=== PATIENT | male | born 1990 | race Two or more races ===

== ENCOUNTER 2022-02-12 09:12 | Emergency (ER) | payer SELFPAY ==
[2022-02-12 09:19] VITALS: BP 123/82; PULSE 72; RESP 18; TEMP 98.1; BMI 29.7
[2022-02-12] MEDS ORDERED: DIPHTH,PERTUSS(ACELL),TET 0.5 ML DISP.SYRIN IM ONE ×2 (09:59→10:04)
[2022-02-12] MEDS ORDERED: KETOROLAC TROMETHAMINE 30 MG/1 ML VIAL IM ONE (09:59)
[2022-02-12] MEDS ORDERED: KETOROLAC TROMETHAMINE 30 MG/1 ML VIAL ONE (10:06)
== END 2022-02-12 10:39 | disposition home or self-care (01) ==
LOC: JERFT 09:12 → JER 09:12 → JERFT 10:39
DX: Z48.00 Encounter for change or removal of nonsurgical wound dressing (principal)
CPT/HCPCS: 90715; 99281-25

== ENCOUNTER 2022-02-17 18:28 | Inpatient (IN) | payer OTHER ==
[2022-02-17] MEDS ORDERED: PIPERACILLIN/TAZOB 3.375 GM 3.375 GM in DEXTROSE 5%-WATER - 50 ML IVPB ONE (21:14)
[2022-02-17] MEDS ORDERED: VANCOMYCIN 1 GM in D5W (PRE-DOCKED) 1,000 MG/250 ML IVPB ONE (21:14)
[2022-02-17] MEDS ORDERED: PIPERACILLIN/TAZOB 3.375 GM 3.375 GM/50 ML BAG IVPB ONE (21:43)
[2022-02-17 22:10] LABS: BASO % 0.8 % (0-2.0); HEMATOCRIT 43.5 % (35.4-49); HEMOGLOBIN 15.3 GM/dL (11.7-16.9); LYMPH % 36.7 % (8-40); MCH 29.3 pg (25.7-33.7); MCHC 35.2 g/dl (32.0-35.9); MEAN PLT VOLUME 7.5 fl (7.5-11.1); NEUT % 50.5 % (42.8-82.8); PLATELET COUNT 256 10^3/uL (134-434); RBC 5.24 M/mm3 (4.00-5.60); RDW 14.5 % (11.9-15.9); WHITE BLOOD COUNT 7.7 K/mm3 (4.0-10.0)
[2022-02-17 22:23] LABS: BLOOD UREA NITROGEN 22.6 mg/dL (7-18); CALCIUM 9.2 mg/dL (8.5-10.1)
[2022-02-17] MEDS ORDERED: VANCOMYCIN/WATER FOR INJ (PEG) 1,000 MG/200 ML BAG IVPB ONE (22:25)
[2022-02-17 22:26] LABS: CREATININE 1.1 mg/dL (0.55-1.3)
[2022-02-17 22:28] LABS: BILIRUBIN,TOTAL 0.3 mg/dL (0.2-1); TOT PROT 7.6 g/dl (6.4-8.2)
[2022-02-17 22:58] LABS: ERYTHROCYTE SEDIMENTATION RATE 8 mm/hr (0-10)
[2022-02-18] MEDS ORDERED: PIPERACILLIN/TAZOB 3.375 GM 3.375 GM/50 ML BAG IVPB ONE ×4 (05:00→18:38)
[2022-02-18] MEDS: PIPERACILLIN/TAZOB 3.375 GM 3.375 GM in DEXTROSE 5%-WATER - 50 ML IVPB SCH ×4 (05:19→20:57)
[2022-02-18] MEDS ORDERED: PIPERACILLIN/TAZOB 3.375 GM 3.375 GM in DEXTROSE 5%-WATER - 50 ML IVPB ONE ×2 (06:00→12:00)
[2022-02-18 06:17] LABS: HEMATOCRIT 42.7 % (35.4-49); HEMOGLOBIN 14.5 GM/dL (11.7-16.9); MCH 27.9 pg (25.7-33.7); MCHC 33.9 g/dl (32.0-35.9); MEAN CELL VOLUME 82.3 fl (80-96); MEAN PLT VOLUME 7.8 fl (7.5-11.1); PLATELET COUNT 242 10^3/uL (134-434); RBC 5.19 M/mm3 (4.00-5.60); RDW 14.7 % (11.9-15.9); WHITE BLOOD COUNT 6.3 K/mm3 (4.0-10.0)
[2022-02-18 06:37] LABS: CALCIUM 8.7 mg/dL (8.5-10.1)
[2022-02-18 06:38] LABS: ALBUMIN 3.7 g/dl (3.4-5.0); BLOOD UREA NITROGEN 19.7 mg/dL (7-18); MAGNESIUM 2.3 mg/dL (1.8-2.4)
[2022-02-18 06:41] LABS: CREATININE 0.9 mg/dL (0.55-1.3); PHOSPHOROUS 3.8 mg/dL (2.5-4.9)
[2022-02-18 06:43] LABS: BILIRUBIN,TOTAL 0.5 mg/dL (0.2-1)
[2022-02-18] MEDS ORDERED: ENOXAPARIN NA (PORCINE) 40 MG/0.4 ML DISP.SYRIN SQ ONE (07:32)
[2022-02-18] MEDS ORDERED: ACETAMINOPHEN INJECTION 100 ML IVPB ONE (09:46)
[2022-02-18] MEDS ORDERED: VANCOMYCIN/WATER 1250 MG 1,250 MG/250 ML BAG IVPB SCH (10:00)
[2022-02-18] MEDS: ACETAMINOPHEN 1000 MG/100 ML BAG IVPB PRN ×2 (10:47→20:11)
[2022-02-18] MEDS: VANCOMYCIN/WATER 1250 MG 1,250 MG/250 ML BAG IVPB SCH ×2 (11:30→22:15)
[2022-02-18] MEDS: ENOXAPARIN NA (PORCINE) 40 MG/0.4 ML DISP.SYRIN SQ SCH (11:30)
[2022-02-18] MEDS ORDERED: VANCOMYCIN 1 GM in D5W (PRE-DOCKED) 1,000 MG/250 ML IVPB ONE (21:00)
[2022-02-19 00:42] VITALS: BMI 30.6
[2022-02-19] MEDS: PIPERACILLIN/TAZOB 3.375 GM 3.375 GM in DEXTROSE 5%-WATER - 50 ML IVPB SCH ×4 (02:33→21:20)
[2022-02-19] MEDS: ENOXAPARIN NA (PORCINE) 40 MG/0.4 ML DISP.SYRIN SQ SCH (09:36)
[2022-02-19] MEDS: VANCOMYCIN/WATER 1250 MG 1,250 MG/250 ML BAG IVPB SCH ×2 (10:49→22:12)
[2022-02-20] MEDS: PIPERACILLIN/TAZOB 3.375 GM 3.375 GM in DEXTROSE 5%-WATER - 50 ML IVPB SCH ×4 (03:08→20:22)
[2022-02-20] MEDS: ENOXAPARIN NA (PORCINE) 40 MG/0.4 ML DISP.SYRIN SQ SCH (10:03)
[2022-02-20] MEDS: VANCOMYCIN/WATER 1250 MG 1,250 MG/250 ML BAG IVPB SCH (11:38)
[2022-02-20] MEDS ORDERED: ACETAMINOPHEN 325 MG TABLET (FP) PO PRN (22:24)
[2022-02-21] MEDS: PIPERACILLIN/TAZOB 3.375 GM 3.375 GM in DEXTROSE 5%-WATER - 50 ML IVPB SCH ×4 (03:03→22:47)
[2022-02-21] MEDS: ENOXAPARIN NA (PORCINE) 40 MG/0.4 ML DISP.SYRIN SQ SCH (10:07)
[2022-02-22] MEDS: PIPERACILLIN/TAZOB 3.375 GM 3.375 GM in DEXTROSE 5%-WATER - 50 ML IVPB SCH ×5 (03:02→20:18)
[2022-02-22] MEDS ORDERED: AMINO ACIDS/PROTEIN HYDROLYS 30 ML LIQUID.PKT PO SCH (08:00)
[2022-02-22] MEDS ORDERED: LIDOCAINE HCL 2% 100 MG/5 ML DISP.SYRIN ONE (08:25)
[2022-02-22] MEDS ORDERED: MIDAZOLAM HCL 2 MG/2 ML SINGLE DOSE VIAL ONE (08:26)
[2022-02-22] MEDS ORDERED: LIDOCAINE HCL 1%, 10 MG/ML (20ML VIAL) ONE (08:27)
[2022-02-22] MEDS ORDERED: GENTAMICIN SO4 80 MG/2 ML VIAL ONE (08:27)
[2022-02-22] MEDS ORDERED: LIDOCAINE HCL 1%, 10 MG/ML (20ML VIAL) NR ONE ×2 (08:35→08:42)
[2022-02-22] MEDS ORDERED: BUPIVACAINE HCL/PF 0.5% (5MG/ML) 10 ML VIAL IJ ONE ×2 (08:36→08:42)
[2022-02-22] MEDS ORDERED: ONDANSETRON 4 MG/2 ML VIAL IVPUSH PRN (09:08)
[2022-02-22] MEDS ORDERED: PROMETHAZINE HCL 25 MG/1 ML VIAL IVPUSH PRN (09:08)
[2022-02-22] MEDS ORDERED: KETOROLAC TROMETHAMINE 30 MG/1 ML VIAL IVPUSH ONE ×2 (09:08→14:30)
[2022-02-22] MEDS ORDERED: LACTATED RINGERS SOLUTION 1,000 ML IV SCH (09:15)
[2022-02-22 10:32] LABS: BASO % 1.2 % (0-2.0); HEMOGLOBIN 14.2 GM/dL (11.7-16.9); MCH 27.5 pg (25.7-33.7); MCHC 33.1 g/dl (32.0-35.9); MEAN CELL VOLUME 83.1 fl (80-96); MONO % 11.6 % (3.8-10.2); NEUT % 46.2 % (42.8-82.8); PLATELET COUNT 276 10^3/uL (134-434); RBC 5.17 M/mm3 (4.00-5.60); RDW 14.1 % (11.9-15.9); WHITE BLOOD COUNT 4.1 K/mm3 (4.0-10.0)
[2022-02-22 11:15] LABS: CALCIUM 8.6 mg/dL (8.5-10.1)
[2022-02-22 11:16] LABS: ALBUMIN 3.6 g/dl (3.4-5.0); BLOOD UREA NITROGEN 15.4 mg/dL (7-18); MAGNESIUM 2.4 mg/dL (1.8-2.4)
[2022-02-22 11:20] LABS: TOT PROT 6.8 g/dl (6.4-8.2)
[2022-02-22 11:21] LABS: BILIRUBIN,TOTAL 0.4 mg/dL (0.2-1)
[2022-02-22 12:16] LABS: INR 1.12 (0.83-1.09); PROTHROMBIN TIME (PATIENT) 12.9 SEC (9.7-13.0)
[2022-02-22] MEDS ORDERED: PIPERACILLIN/TAZOB 3.375 GM 3.375 GM in DEXTROSE 5%-WATER - 50 ML IVPB SCH (15:00)
[2022-02-22] MEDS: AMINO ACIDS/PROTEIN HYDROLYS 30 ML LIQUID.PKT PO SCH (16:51)
[2022-02-22] MEDS: ACETAMINOPHEN 325 MG TABLET (FP) PO PRN (22:29)
[2022-02-23] MEDS: PIPERACILLIN/TAZOB 3.375 GM 3.375 GM in DEXTROSE 5%-WATER - 50 ML IVPB SCH ×4 (02:22→20:53)
[2022-02-23] MEDS: AMINO ACIDS/PROTEIN HYDROLYS 30 ML LIQUID.PKT PO SCH ×2 (09:00→17:23)
[2022-02-23] MEDS: ACETAMINOPHEN 325 MG TABLET (FP) PO PRN (09:31)
[2022-02-23 09:41] LABS: BASO % 1.3 % (0-2.0); EOS % 2.2 % (0-4.5); HEMATOCRIT 46.2 % (35.4-49); HEMOGLOBIN 15.7 GM/dL (11.7-16.9); LYMPH % 43.9 % (8-40); MCH 28.5 pg (25.7-33.7); MEAN CELL VOLUME 83.8 fl (80-96); MEAN PLT VOLUME 7.9 fl (7.5-11.1); MONO % 10.8 % (3.8-10.2); NEUT % 41.8 % (42.8-82.8); PLATELET COUNT 283 10^3/uL (134-434); RBC 5.52 M/mm3 (4.00-5.60); RDW 14.3 % (11.9-15.9); WHITE BLOOD COUNT 3.7 K/mm3 (4.0-10.0)
[2022-02-23 09:56] LABS: INR 1.12 (0.83-1.09); PROTHROMBIN TIME (PATIENT) 12.9 SEC (9.7-13.0)
[2022-02-23 09:57] LABS: CALCIUM 9.2 mg/dL (8.5-10.1)
[2022-02-23 09:58] LABS: MAGNESIUM 2.3 mg/dL (1.8-2.4)
[2022-02-23 10:00] LABS: BILIRUBIN,TOTAL 0.6 mg/dL (0.2-1); TOT PROT 7.6 g/dl (6.4-8.2)
[2022-02-23 10:01] LABS: CREATININE 0.9 mg/dL (0.55-1.3)
[2022-02-23 10:10] LABS: BLOOD UREA NITROGEN 15.7 mg/dL (7-18)
[2022-02-24] MEDS: PIPERACILLIN/TAZOB 3.375 GM 3.375 GM in DEXTROSE 5%-WATER - 50 ML IVPB SCH ×2 (02:40→09:04)
[2022-02-24] MEDS: ACETAMINOPHEN 325 MG TABLET (FP) PO PRN (02:41)
[2022-02-24 08:33] LABS: BASO % 1.3 % (0-2.0); EOS % 3.2 % (0-4.5); HEMATOCRIT 43.2 % (35.4-49); HEMOGLOBIN 14.7 GM/dL (11.7-16.9); INR 1.11 (0.83-1.09); LYMPH % 48.9 % (8-40); MCH 27.8 pg (25.7-33.7); MEAN CELL VOLUME 81.9 fl (80-96); MEAN PLT VOLUME 7.8 fl (7.5-11.1); MONO % 9.2 % (3.8-10.2); NEUT % 37.4 % (42.8-82.8); PLATELET COUNT 269 10^3/uL (134-434); PROTHROMBIN TIME (PATIENT) 12.8 SEC (9.7-13.0); RBC 5.28 M/mm3 (4.00-5.60); RDW 13.9 % (11.9-15.9); WHITE BLOOD COUNT 3.9 K/mm3 (4.0-10.0)
[2022-02-24 08:51] LABS: ALBUMIN 3.6 g/dl (3.4-5.0); CALCIUM 8.7 mg/dL (8.5-10.1); MAGNESIUM 2.2 mg/dL (1.8-2.4)
[2022-02-24 08:54] LABS: CREATININE 0.9 mg/dL (0.55-1.3)
[2022-02-24 08:55] LABS: BILIRUBIN,TOTAL 0.5 mg/dL (0.2-1); TOT PROT 6.8 g/dl (6.4-8.2)
[2022-02-24] MEDS: AMINO ACIDS/PROTEIN HYDROLYS 30 ML LIQUID.PKT PO SCH ×2 (09:04→17:04)
[2022-02-24] MEDS: metroNIDAZOLE 250 MG TABLET PO SCH ×2 (13:55→21:31)
[2022-02-24] MEDS: CEFAZOLIN SODIUM 2 GM in DEXTROSE 5%-WATER 100 ML IVPB SCH (17:45)
[2022-02-24] MEDS ORDERED: CEFAZOLIN SODIUM 2 GM in DEXTROSE 5%-WATER 100 ML IVPB SCH (18:00)
[2022-02-25] MEDS: CEFAZOLIN SODIUM 2 GM in DEXTROSE 5%-WATER 100 ML IVPB SCH ×3 (01:36→17:20)
[2022-02-25] MEDS: metroNIDAZOLE 250 MG TABLET PO SCH ×3 (05:43→21:05)
[2022-02-25] MEDS: AMINO ACIDS/PROTEIN HYDROLYS 30 ML LIQUID.PKT PO SCH ×2 (10:26→17:19)
[2022-02-25 10:30] LABS: INR 1.2 (0.83-1.09); PROTHROMBIN TIME (PATIENT) 13.8 SEC (9.7-13.0)
[2022-02-25 10:36] LABS: CALCIUM 8.7 mg/dL (8.5-10.1)
[2022-02-25 10:37] LABS: ALBUMIN 3.7 g/dl (3.4-5.0); BLOOD UREA NITROGEN 14.4 mg/dL (7-18)
[2022-02-25 10:38] LABS: EOS % 2.6 % (0-4.5); HEMATOCRIT 45.1 % (35.4-49); LYMPH % 38.9 % (8-40); MCHC 33.3 g/dl (32.0-35.9); MEAN CELL VOLUME 83.9 fl (80-96); MEAN PLT VOLUME 8.1 fl (7.5-11.1); MONO % 6.7 % (3.8-10.2); NEUT % 50.8 % (42.8-82.8); PLATELET COUNT 270 10^3/uL (134-434); RBC 5.37 M/mm3 (4.00-5.60); RDW 14.4 % (11.9-15.9); WHITE BLOOD COUNT 3.7 K/mm3 (4.0-10.0)
[2022-02-25 10:39] LABS: MAGNESIUM 2.1 mg/dL (1.8-2.4)
[2022-02-25 10:40] LABS: CREATININE 0.9 mg/dL (0.55-1.3)
[2022-02-25 10:41] LABS: BILIRUBIN,TOTAL 0.4 mg/dL (0.2-1)
[2022-02-25 11:03] VITALS: RESP 20
[2022-02-26] MEDS: CEFAZOLIN SODIUM 2 GM in DEXTROSE 5%-WATER 100 ML IVPB SCH ×2 (02:16→10:01)
[2022-02-26] MEDS: metroNIDAZOLE 250 MG TABLET PO SCH ×2 (06:13→14:11)
[2022-02-26] MEDS: AMINO ACIDS/PROTEIN HYDROLYS 30 ML LIQUID.PKT PO SCH (08:27)
[2022-02-26 09:37] LABS: EOS % 2.4 % (0-4.5); HEMATOCRIT 44.4 % (35.4-49); HEMOGLOBIN 15.2 GM/dL (11.7-16.9); LYMPH % 42.7 % (8-40); MCH 28.4 pg (25.7-33.7); MCHC 34.3 g/dl (32.0-35.9); MEAN CELL VOLUME 82.8 fl (80-96); MEAN PLT VOLUME 7.8 fl (7.5-11.1); MONO % 11.3 % (3.8-10.2); NEUT % 42.6 % (42.8-82.8); PLATELET COUNT 267 10^3/uL (134-434); RBC 5.36 M/mm3 (4.00-5.60)
[2022-02-26 09:42] LABS: INR 1.18 (0.83-1.09); PROTHROMBIN TIME (PATIENT) 13.6 SEC (9.7-13.0)
[2022-02-26 10:18] LABS: ALBUMIN 3.9 g/dl (3.4-5.0); BLOOD UREA NITROGEN 15.9 mg/dL (7-18); CALCIUM 9.2 mg/dL (8.5-10.1); MAGNESIUM 2.3 mg/dL (1.8-2.4)
[2022-02-26 10:21] LABS: CREATININE 0.9 mg/dL (0.55-1.3)
[2022-02-26 10:22] LABS: BILIRUBIN,TOTAL 1.1 mg/dL (0.2-1)
[2022-02-26 15:08] VITALS: BP 106/57; PULSE 74; TEMP 98.6
== END 2022-02-26 15:50 | disposition home or self-care (01) | DRG 721 ==
LOC: JER 18:28 → JERBED 22:51 → OBSVTOIN 23:48 → J7W 02-18 19:24
PROVIDERS: ADMIT Internal Medicine; ATTEND Nurse Practitioner Acute Care
PROC: 0Y9M0ZZ Drainage of Right Foot, Open Approach (ICD-10-PCS; 2022-02-22)
PROC: 02HV33Z Insertion of Infusion Device into Superior Vena Cava, Percutaneous Approach (ICD-10-PCS; principal; 2022-02-25)
PROC: B518ZZA Fluoroscopy of Superior Vena Cava, Guidance (ICD-10-PCS; 2022-02-25)
DX: T81.49XA Infection following a procedure, other surgical site, initial encounter (principal); B95.61 Methicillin susceptible Staphylococcus aureus infection as the cause of diseases classified elsewhere; B95.4 Other streptococcus as the cause of diseases classified elsewhere; Y83.8 Other surgical procedures as the cause of abnormal reaction of the patient, or of later complication, without mention of misadventure at the time of the procedure; M86.8X8 Other osteomyelitis, other site; L03.031 Cellulitis of right toe; L08.9 Local infection of the skin and subcutaneous tissue, unspecified; M1A.9XX1 Chronic gout, unspecified, with tophus (tophi)
CPT/HCPCS: 0241U-QW; 36415; 36569; 73630-TC-RT-FY; 73718-TC-RT; 80053; 83735; 84100; 84550; 85025; 85027; 85610; 85651; 86140; 87040; 87070; 87076; 87186; 87205; 94760; 99285-25; G0378; G0480

== ENCOUNTER 2022-02-27 15:05 | Day surgery (SDC) | payer OTHER ==
[2022-02-27] MEDS ORDERED: CEFTRIAXONE 2 GM in DEXTROSE 5%-WATER 100 ML IVPB ONE (15:45)
[2022-02-27 16:44] VITALS: BP 115/74; PULSE 55; RESP 18; TEMP 97.8
== END 2022-02-27 16:45 | disposition home or self-care (01) ==
LOC: FINFUSION 15:05 → FM/S 15:06 → FINFUSION 16:45
PROVIDERS: ATTEND Nurse Practitioner Family
DX: M86.9 Osteomyelitis, unspecified (principal); L08.89 Other specified local infections of the skin and subcutaneous tissue
CPT/HCPCS: 96365

== ENCOUNTER 2022-02-28 13:42 | Day surgery (SDC) | payer OTHER ==
[2022-02-28] MEDS ORDERED: CEFTRIAXONE 2 GM in DEXTROSE 5%-WATER 100 ML IVPB ONE (14:45)
[2022-02-28 14:49] VITALS: BP 125/85; PULSE 95; RESP 16; TEMP 98.4
== END 2022-02-28 15:16 | disposition home or self-care (01) ==
LOC: FINFUSION 13:42 → FM/S 13:45 → FINFUSION 15:16
PROVIDERS: ATTEND Nurse Practitioner Family
DX: M86.9 Osteomyelitis, unspecified (principal); L08.89 Other specified local infections of the skin and subcutaneous tissue
CPT/HCPCS: 96365

== ENCOUNTER 2022-03-01 13:14 | Day surgery (SDC) | payer OTHER ==
[2022-03-01] MEDS ORDERED: CEFTRIAXONE 2 GM in DEXTROSE 5%-WATER 100 ML IVPB ONE (13:30)
[2022-03-01 14:36] VITALS: BP 107/65; PULSE 87; RESP 18; TEMP 98.4
== END 2022-03-01 14:37 | disposition home or self-care (01) ==
LOC: FINFUSION 13:14 → FM/S 13:15 → FINFUSION 14:37
PROVIDERS: ATTEND Nurse Practitioner Family
DX: M86.9 Osteomyelitis, unspecified (principal); L08.9 Local infection of the skin and subcutaneous tissue, unspecified
CPT/HCPCS: 96365

== ENCOUNTER 2022-03-02 13:34 | Day surgery (SDC) | payer OTHER ==
[2022-03-02] MEDS ORDERED: cefTRIAXone 2 GM/100 ML BAG (PRE-DOCKED) IVPB SCH (14:00)
[2022-03-02 14:51] VITALS: BP 122/83; PULSE 63; RESP 18; TEMP 98.3
== END 2022-03-02 14:52 | disposition home or self-care (01) ==
LOC: FINFUSION 13:34 → FM/S 13:53 → FINFUSION 14:52
PROVIDERS: ATTEND Nurse Practitioner Family
DX: M86.9 Osteomyelitis, unspecified (principal); L08.9 Local infection of the skin and subcutaneous tissue, unspecified
CPT/HCPCS: 96365

== ENCOUNTER 2022-03-03 13:24 | Day surgery (SDC) | payer OTHER ==
[2022-03-03] MEDS ORDERED: CEFTRIAXONE 2 GM in DEXTROSE 5%-WATER 100 ML IVPB ONE (13:45)
[2022-03-03 14:17] VITALS: BP 105/65; PULSE 77; RESP 16; TEMP 98.9
== END 2022-03-03 14:29 | disposition home or self-care (01) ==
LOC: FM/S 13:24 → FINFUSION 13:24
PROVIDERS: ATTEND Nurse Practitioner Family
DX: M86.9 Osteomyelitis, unspecified (principal); L08.9 Local infection of the skin and subcutaneous tissue, unspecified
CPT/HCPCS: 96365

== ENCOUNTER 2022-03-04 11:49 | Day surgery (SDC) | payer OTHER ==
[2022-03-04] MEDS ORDERED: CEFTRIAXONE 2 GM in DEXTROSE 5%-WATER 100 ML IVPB ONE (12:00)
[2022-03-04 13:12] VITALS: BP 104/68; PULSE 60; RESP 18; TEMP 98.4
[2022-03-04 13:46] LABS: HEMATOCRIT 44.8 % (35.4-49); HEMOGLOBIN 15.7 G/dL (11.7-16.9); MCH 29.2 pg (25.7-33.7); MCHC 35.1 g/dl (32.0-35.9); MEAN CELL VOLUME 83.2 fl (80-96); MEAN PLT VOLUME 8.3 fl (7.5-11.1); PLATELET COUNT 232.4 10^3/uL (134-434); RBC 5.39 10^6/uL (4.00-5.60); RDW 15.4 % (11.9-15.9); WHITE BLOOD COUNT 4.9 10^3/uL (4.0-10.8)
[2022-03-04 14:01] LABS: ALBUMIN 4.2 g/dl (3.4-5.0); ALK PHOS 62 U/L (45-117); ANION GAP 7 MMOL/L (8-16); BILIRUBIN,TOTAL 0.5 mg/dl (0.2-1); CALCIUM 9.5 mg/dl (8.5-10); CHLORIDE 101 mmol/L (98-107); CO2 26 mmol/L (21-32); CREATININE 0.8 mg/dl (0.55-1.3); GLUCOSE,RANDOM 90 mg/dl (74-106); SGOT/AST 21 U/L (15-37); SGPT/ALT 28 U/L (13-61); SODIUM 134 mmol/L (136-145)
[2022-03-04 15:22] LABS: ERYTHROCYTE SEDIMENTATION RATE 2 mm/hr (0-10)
== END 2022-03-04 13:45 | disposition home or self-care (01) ==
LOC: FINFUSION 11:49 → FM/S 11:54 → FINFUSION 13:45
PROVIDERS: ATTEND Nurse Practitioner Family
DX: M86.9 Osteomyelitis, unspecified (principal); L08.9 Local infection of the skin and subcutaneous tissue, unspecified
CPT/HCPCS: 36415; 80053; 85027; 85651; 86140; 96365

== ENCOUNTER 2022-03-05 13:37 | Day surgery (SDC) | payer OTHER ==
[~2022-03-05 13:37] MED LIST: CEFTRIAXONE 2 GM in DEXTROSE 5%-WATER 100 ML IVPB ONE
[2022-03-05 15:11] VITALS: BP 117/75; PULSE 80; RESP 19; TEMP 98.5
== END 2022-03-05 15:12 | disposition home or self-care (01) ==
LOC: FINFUSION 13:37 → FM/S 13:38 → FINFUSION 15:12
PROVIDERS: ATTEND Nurse Practitioner Family
DX: M86.9 Osteomyelitis, unspecified (principal); L08.9 Local infection of the skin and subcutaneous tissue, unspecified
CPT/HCPCS: 96365

== ENCOUNTER 2022-03-06 13:37 | Day surgery (SDC) | payer OTHER ==
[2022-03-06] MEDS ORDERED: CEFTRIAXONE 2 GM in DEXTROSE 5%-WATER 100 ML IVPB ONE (14:00)
[2022-03-06 14:18] VITALS: RESP 18; TEMP 98.5
[2022-03-06 14:40] VITALS: BP 110/62; PULSE 82
== END 2022-03-06 14:48 | disposition home or self-care (01) ==
LOC: FINFUSION 13:37 → FM/S 13:40 → FINFUSION 14:48
PROVIDERS: ATTEND Nurse Practitioner Family
DX: M86.9 Osteomyelitis, unspecified (principal); L08.9 Local infection of the skin and subcutaneous tissue, unspecified
CPT/HCPCS: 96365

== ENCOUNTER 2022-03-07 13:46 | Day surgery (SDC) | payer OTHER ==
[2022-03-07] MEDS ORDERED: CEFTRIAXONE 2 GM in DEXTROSE 5%-WATER 100 ML IVPB ONE (14:00)
[2022-03-07 15:18] VITALS: BP 118/78; PULSE 69; RESP 18; TEMP 97.8
== END 2022-03-07 15:18 | disposition home or self-care (01) ==
LOC: FINFUSION 13:46 → FM/S 13:50 → FINFUSION 15:18
PROVIDERS: ATTEND Nurse Practitioner Family
DX: M86.9 Osteomyelitis, unspecified (principal); L08.9 Local infection of the skin and subcutaneous tissue, unspecified
CPT/HCPCS: 96365

== ENCOUNTER 2022-03-08 13:09 | Day surgery (SDC) | payer OTHER ==
[2022-03-08] MEDS ORDERED: CEFTRIAXONE 2 GM in DEXTROSE 5%-WATER 100 ML IVPB ONE (14:00)
[2022-03-08 14:31] VITALS: BP 116/74; PULSE 59; RESP 16; TEMP 98.1
== END 2022-03-08 14:33 | disposition home or self-care (01) ==
LOC: FINFUSION 13:09 → FM/S 13:12 → FINFUSION 14:33
PROVIDERS: ATTEND Nurse Practitioner Family
DX: M86.9 Osteomyelitis, unspecified (principal); L08.9 Local infection of the skin and subcutaneous tissue, unspecified
CPT/HCPCS: 96365

== ENCOUNTER 2022-03-09 13:13 | Day surgery (SDC) | payer OTHER ==
[2022-03-09] MEDS ORDERED: cefTRIAXone 2 GM/100 ML BAG (PRE-DOCKED) IVPB SCH (13:30)
[2022-03-09 13:57] VITALS: BP 114/74; PULSE 58; RESP 16; TEMP 98.1
== END 2022-03-09 14:17 | disposition home or self-care (01) ==
LOC: FINFUSION 13:13 → FM/S 13:16 → FINFUSION 14:17
PROVIDERS: ATTEND Nurse Practitioner Family
DX: M86.9 Osteomyelitis, unspecified (principal); L08.9 Local infection of the skin and subcutaneous tissue, unspecified
CPT/HCPCS: 96365

== ENCOUNTER 2022-03-10 13:35 | Day surgery (SDC) | payer OTHER ==
[2022-03-10] MEDS ORDERED: CEFTRIAXONE 2 GM in DEXTROSE 5%-WATER 100 ML IVPB ONE (13:45)
[2022-03-10 14:11] VITALS: BP 116/72; PULSE 69; RESP 16; TEMP 98.4
== END 2022-03-10 14:13 | disposition home or self-care (01) ==
LOC: FINFUSION 13:35 → FM/S 13:39 → FINFUSION 14:13
PROVIDERS: ATTEND Nurse Practitioner Family
DX: M86.9 Osteomyelitis, unspecified (principal); L08.9 Local infection of the skin and subcutaneous tissue, unspecified
CPT/HCPCS: 96365

== ENCOUNTER 2022-03-11 13:25 | Day surgery (SDC) | payer OTHER ==
[2022-03-11] MEDS ORDERED: CEFTRIAXONE 2 GM in DEXTROSE 5%-WATER 100 ML IVPB ONE (13:30)
[2022-03-11 14:09] VITALS: BP 117/68; PULSE 67; RESP 16; TEMP 98.2
== END 2022-03-11 14:11 | disposition home or self-care (01) ==
LOC: FINFUSION 13:25 → FM/S 13:26 → FINFUSION 14:11
PROVIDERS: ATTEND Nurse Practitioner Family
DX: M86.9 Osteomyelitis, unspecified (principal); L08.9 Local infection of the skin and subcutaneous tissue, unspecified
CPT/HCPCS: 96365

== ENCOUNTER 2022-03-12 12:32 | Day surgery (SDC) | payer OTHER ==
[2022-03-12] MEDS ORDERED: CEFTRIAXONE 2 GM in DEXTROSE 5%-WATER 100 ML IVPB ONE (13:00)
[2022-03-12 14:05] VITALS: BP 107/60; PULSE 62; RESP 18; TEMP 98.1
[2022-03-12 14:22] LABS: HEMOGLOBIN 16.2 G/dL (11.7-16.9); MCH 29.4 pg (25.7-33.7); MCHC 35.2 g/dl (32.0-35.9); MEAN CELL VOLUME 83.5 fl (80-96); MEAN PLT VOLUME 8.3 fl (7.5-11.1); PLATELET COUNT 240.4 10^3/uL (134-434); RBC 5.51 10^6/uL (4.00-5.60); RDW 14.9 % (11.9-15.9); WHITE BLOOD COUNT 5.4 10^3/uL (4.0-10.8)
[2022-03-12 14:39] LABS: ALBUMIN 4.5 g/dl (3.4-5.0); ALK PHOS 59 U/L (45-117); ANION GAP 2 MMOL/L (8-16); BILIRUBIN,TOTAL 0.6 mg/dl (0.2-1); CALCIUM 9.1 mg/dl (8.5-10); CHLORIDE 106 mmol/L (98-107); CO2 25 mmol/L (21-32); CREATININE 0.8 mg/dl (0.55-1.3); GLUCOSE,RANDOM 79 mg/dl (74-106); SGOT/AST 29 U/L (15-37); SGPT/ALT 41 U/L (13-61); SODIUM 133 mmol/L (136-145); TOT PROT 7.2 g/dl (6.4-8.2)
[2022-03-12 15:01] LABS: ERYTHROCYTE SEDIMENTATION RATE 2 mm/hr (0-10)
== END 2022-03-12 14:06 | disposition home or self-care (01) ==
LOC: FINFUSION 12:32 → FM/S 12:36 → FINFUSION 14:06
PROVIDERS: ATTEND Nurse Practitioner Family
DX: M86.9 Osteomyelitis, unspecified (principal); L08.9 Local infection of the skin and subcutaneous tissue, unspecified
CPT/HCPCS: 36415; 80053; 85027; 85651; 86140; 96365

== ENCOUNTER 2022-03-13 12:27 | Day surgery (SDC) | payer OTHER ==
[2022-03-13] MEDS ORDERED: CEFTRIAXONE 2 GM in DEXTROSE 5%-WATER 100 ML IVPB ONE (13:00)
[2022-03-13 13:57] VITALS: BP 116/68; PULSE 66; RESP 15; TEMP 98
== END 2022-03-13 13:45 | disposition home or self-care (01) ==
LOC: FINFUSION 12:27 → FM/S 12:32 → FINFUSION 13:45
PROVIDERS: ATTEND Nurse Practitioner Family
DX: M86.9 Osteomyelitis, unspecified (principal); L08.9 Local infection of the skin and subcutaneous tissue, unspecified
CPT/HCPCS: 96365

== ENCOUNTER 2022-03-14 13:43 | Day surgery (SDC) | payer OTHER ==
[2022-03-14 15:01] VITALS: BP 102/71; PULSE 64; RESP 14; TEMP 98.2
== END 2022-03-14 15:02 | disposition home or self-care (01) ==
LOC: FINFUSION 13:43 → FM/S 13:43 → FINFUSION 15:02
PROVIDERS: ATTEND Nurse Practitioner Family
DX: M86.9 Osteomyelitis, unspecified (principal); L08.9 Local infection of the skin and subcutaneous tissue, unspecified
CPT/HCPCS: 96365

== ENCOUNTER 2022-03-15 13:32 | Day surgery (SDC) | payer OTHER ==
[2022-03-15] MEDS ORDERED: CEFTRIAXONE 2 GM in DEXTROSE 5%-WATER 100 ML IVPB ONE (14:00)
[2022-03-15 14:51] VITALS: BP 110/67; PULSE 64; RESP 18; TEMP 98.2
== END 2022-03-15 15:15 | disposition home or self-care (01) ==
LOC: FM/S 13:32 → FINFUSION 13:32
PROVIDERS: ATTEND Nurse Practitioner Family
DX: M86.9 Osteomyelitis, unspecified (principal); L08.9 Local infection of the skin and subcutaneous tissue, unspecified
CPT/HCPCS: 96365

== ENCOUNTER 2022-03-16 13:46 | Day surgery (SDC) | payer OTHER ==
[2022-03-16] MEDS ORDERED: cefTRIAXone 2 GM/100 ML BAG (PRE-DOCKED) IVPB SCH (14:00)
[2022-03-16 14:43] VITALS: BP 103/56; PULSE 66; RESP 16; TEMP 97.8
== END 2022-03-16 14:45 | disposition home or self-care (01) ==
LOC: FINFUSION 13:46 → FM/S 13:48 → FINFUSION 14:45
PROVIDERS: ATTEND Nurse Practitioner Family
DX: M86.9 Osteomyelitis, unspecified (principal); L08.9 Local infection of the skin and subcutaneous tissue, unspecified
CPT/HCPCS: 96365

== ENCOUNTER 2022-03-17 13:28 | Day surgery (SDC) | payer OTHER ==
[2022-03-17] MEDS ORDERED: CEFTRIAXONE 2 GM in DEXTROSE 5%-WATER 100 ML IVPB ONE (13:45)
[2022-03-17 14:45] VITALS: BP 114/74; PULSE 63; RESP 18; TEMP 98.2
== END 2022-03-17 14:46 | disposition home or self-care (01) ==
LOC: FINFUSION 13:28 → FM/S 13:29 → FINFUSION 14:46 → EDSTATUS 15:45
PROVIDERS: ATTEND Nurse Practitioner Family
DX: M86.9 Osteomyelitis, unspecified (principal); L08.9 Local infection of the skin and subcutaneous tissue, unspecified
CPT/HCPCS: 96365

== ENCOUNTER 2022-03-18 12:41 | Day surgery (SDC) | payer OTHER ==
[2022-03-18 13:17] VITALS: BP 110/63; RESP 18; TEMP 97.9
[2022-03-18] MEDS ORDERED: CEFTRIAXONE 2 GM in DEXTROSE 5%-WATER 100 ML IVPB ONE (13:30)
[2022-03-18 13:43] LABS: HEMATOCRIT 44.2 % (35.4-49); HEMOGLOBIN 15.7 G/dL (11.7-16.9); MCH 29.5 pg (25.7-33.7); MCHC 35.5 g/dl (32.0-35.9); MEAN CELL VOLUME 83.3 fl (80-96); MEAN PLT VOLUME 8.3 fl (7.5-11.1); PLATELET COUNT 210.6 10^3/uL (134-434); RBC 5.31 10^6/uL (4.00-5.60); RDW 14.8 % (11.9-15.9); WHITE BLOOD COUNT 4.6 10^3/uL (4.0-10.8)
[2022-03-18 14:12] VITALS: PULSE 72
[2022-03-18 14:18] LABS: ALBUMIN 4.2 g/dl (3.4-5.0); ALK PHOS 59 U/L (45-117); ANION GAP 8 MMOL/L (8-16); BILIRUBIN,TOTAL 0.7 mg/dl (0.2-1); CALCIUM 9.3 mg/dl (8.5-10); CHLORIDE 102 mmol/L (98-107); CO2 25 mmol/L (21-32); CREATININE 0.8 mg/dl (0.55-1.3); GLUCOSE,RANDOM 133 mg/dl (74-106); SGOT/AST 24 U/L (15-37); SGPT/ALT 40 U/L (13-61); SODIUM 135 mmol/L (136-145); TOT PROT 6.8 g/dl (6.4-8.2)
[2022-03-18 15:58] LABS: ERYTHROCYTE SEDIMENTATION RATE 2 mm/hr (0-10)
== END 2022-03-18 14:00 | disposition home or self-care (01) ==
LOC: FINFUSION 12:41 → FM/S 12:42 → FINFUSION 14:00 → EDSTATUS 15:45
PROVIDERS: ATTEND Nurse Practitioner Family
DX: M86.9 Osteomyelitis, unspecified (principal); L08.9 Local infection of the skin and subcutaneous tissue, unspecified
CPT/HCPCS: 36415; 80053; 85027; 85651; 86140; 96365

== ENCOUNTER 2022-03-19 13:25 | Day surgery (SDC) | payer OTHER ==
[2022-03-19 13:46] VITALS: BP 112/67; PULSE 73; RESP 18; TEMP 98.1
== END 2022-03-19 14:40 | disposition home or self-care (01) ==
LOC: FINFUSION 13:25 → FM/S 13:28 → FINFUSION 14:40 → EDSTATUS 15:45
PROVIDERS: ATTEND Nurse Practitioner Family
DX: M86.9 Osteomyelitis, unspecified (principal); L08.9 Local infection of the skin and subcutaneous tissue, unspecified
CPT/HCPCS: 96365

== ENCOUNTER 2022-03-20 13:40 | Day surgery (SDC) | payer OTHER ==
[2022-03-20] MEDS ORDERED: CEFTRIAXONE 2 GM in DEXTROSE 5%-WATER 100 ML IVPB ONE (14:00)
[2022-03-20 14:38] VITALS: BP 114/70; PULSE 58; RESP 16; TEMP 97.8
== END 2022-03-20 14:39 | disposition home or self-care (01) ==
LOC: FINFUSION 13:40 → FM/S 13:41 → FINFUSION 14:39
PROVIDERS: ATTEND Nurse Practitioner Family
DX: M86.9 Osteomyelitis, unspecified (principal); L08.9 Local infection of the skin and subcutaneous tissue, unspecified
CPT/HCPCS: 96365; 96367

== ENCOUNTER 2022-03-21 13:34 | Day surgery (SDC) | payer OTHER ==
[2022-03-21 14:33] VITALS: BP 112/60; PULSE 64; RESP 16; TEMP 98.1
== END 2022-03-21 14:33 | disposition home or self-care (01) ==
LOC: FM/S 13:34 → FINFUSION 13:34
PROVIDERS: ATTEND Nurse Practitioner Family
DX: M86.9 Osteomyelitis, unspecified (principal); L08.9 Local infection of the skin and subcutaneous tissue, unspecified
CPT/HCPCS: 96365

== ENCOUNTER 2022-03-22 13:21 | Day surgery (SDC) | payer OTHER ==
[2022-03-22 14:10] VITALS: BP 106/70; PULSE 71; RESP 16; TEMP 98.5
== END 2022-03-22 14:11 | disposition home or self-care (01) ==
LOC: FINFUSION 13:21 → FM/S 13:23 → FINFUSION 14:11
PROVIDERS: ATTEND Nurse Practitioner Family
DX: M86.9 Osteomyelitis, unspecified (principal); L08.9 Local infection of the skin and subcutaneous tissue, unspecified
CPT/HCPCS: 96365

== ENCOUNTER 2022-03-23 13:17 | Day surgery (SDC) | payer OTHER ==
[2022-03-23] MEDS ORDERED: cefTRIAXone 2 GM/100 ML BAG (PRE-DOCKED) IVPB SCH (13:30)
[2022-03-23 13:51] VITALS: BP 118/61; PULSE 66; RESP 16; TEMP 98.1
== END 2022-03-23 13:52 | disposition home or self-care (01) ==
LOC: FINFUSION 13:17 → FM/S 13:20 → FINFUSION 13:52
PROVIDERS: ATTEND Nurse Practitioner Family
DX: M86.9 Osteomyelitis, unspecified (principal); L08.9 Local infection of the skin and subcutaneous tissue, unspecified
CPT/HCPCS: 96365

== ENCOUNTER 2022-03-24 13:31 | Day surgery (SDC) | payer OTHER ==
[2022-03-24 13:48] VITALS: RESP 18; TEMP 98.1
[2022-03-24] MEDS ORDERED: CEFTRIAXONE 2 GM in DEXTROSE 5%-WATER 100 ML IVPB ONE (14:00)
[2022-03-24 14:34] VITALS: BP 105/71; PULSE 63
== END 2022-03-24 14:37 | disposition home or self-care (01) ==
LOC: FINFUSION 13:31 → FM/S 13:35 → FINFUSION 14:37
PROVIDERS: ATTEND Nurse Practitioner Family
DX: M86.9 Osteomyelitis, unspecified (principal); L08.9 Local infection of the skin and subcutaneous tissue, unspecified
CPT/HCPCS: 96365

== ENCOUNTER 2022-03-25 12:14 | Day surgery (SDC) | payer OTHER ==
[2022-03-25 12:48] VITALS: PULSE 70; RESP 18; TEMP 98.3
[2022-03-25 13:36] VITALS: BP 105/76
[2022-03-25 15:08] LABS: HEMATOCRIT 43.7 % (35.4-49); HEMOGLOBIN 15.6 G/dL (11.7-16.9); MCHC 35.8 g/dl (32.0-35.9); MEAN CELL VOLUME 83.7 fl (80-96); MEAN PLT VOLUME 8.6 fl (7.5-11.1); RBC 5.22 10^6/uL (4.00-5.60); RDW 14.9 % (11.9-15.9); WHITE BLOOD COUNT 4.2 10^3/uL (4.0-10.8)
[2022-03-25 15:09] LABS: ALBUMIN 4.2 g/dl (3.4-5.0); ALK PHOS 68 U/L (45-117); ANION GAP 3 MMOL/L (8-16); BILIRUBIN,TOTAL 0.4 mg/dl (0.2-1); CALCIUM 8.8 mg/dl (8.5-10); CHLORIDE 104 mmol/L (98-107); CO2 25 mmol/L (21-32); CREATININE 0.6 mg/dl (0.55-1.3); GLUCOSE,RANDOM 126 mg/dl (74-106); SGOT/AST 26 U/L (15-37); SGPT/ALT 46 U/L (13-61); SODIUM 132 mmol/L (136-145); TOT PROT 6.9 g/dl (6.4-8.2)
[2022-03-25 16:33] LABS: ERYTHROCYTE SEDIMENTATION RATE 2 mm/hr (0-10)
== END 2022-03-25 13:37 | disposition home or self-care (01) ==
LOC: FINFUSION 12:14 → FM/S 12:16 → FINFUSION 13:37
PROVIDERS: ATTEND Nurse Practitioner Family
DX: M86.9 Osteomyelitis, unspecified (principal); L08.9 Local infection of the skin and subcutaneous tissue, unspecified
CPT/HCPCS: 36415; 80053; 85027; 85651; 86140; 96365

== ENCOUNTER 2022-03-26 13:37 | Day surgery (SDC) | payer OTHER ==
[2022-03-26 14:42] VITALS: BP 112/75; PULSE 75; RESP 16; TEMP 98.2
== END 2022-03-26 15:29 | disposition home or self-care (01) ==
LOC: FINFUSION 13:37 → FM/S 13:38 → FINFUSION 15:29
PROVIDERS: ATTEND Nurse Practitioner Family
DX: M86.9 Osteomyelitis, unspecified (principal); L08.9 Local infection of the skin and subcutaneous tissue, unspecified
CPT/HCPCS: 96365

== ENCOUNTER 2022-03-27 13:28 | Day surgery (SDC) | payer OTHER ==
[2022-03-27 14:23] VITALS: BP 111/71; PULSE 66; RESP 18; TEMP 98.3
== END 2022-03-27 14:23 | disposition home or self-care (01) ==
LOC: FINFUSION 13:28 → FM/S 13:32 → FINFUSION 14:23
PROVIDERS: ATTEND Nurse Practitioner Family
DX: M86.9 Osteomyelitis, unspecified (principal); L08.9 Local infection of the skin and subcutaneous tissue, unspecified
CPT/HCPCS: 96365

== ENCOUNTER 2022-03-28 13:34 | Day surgery (SDC) | payer OTHER ==
[2022-03-28 14:05] VITALS: BP 114/67; PULSE 64; RESP 18; TEMP 98.6
== END 2022-03-28 14:20 | disposition home or self-care (01) ==
LOC: FINFUSION 13:34 → FM/S 13:35 → FINFUSION 14:20
PROVIDERS: ATTEND Nurse Practitioner Family
DX: M86.9 Osteomyelitis, unspecified (principal); L08.9 Local infection of the skin and subcutaneous tissue, unspecified
CPT/HCPCS: 96365

== ENCOUNTER 2022-03-29 13:18 | Day surgery (SDC) | payer OTHER ==
[2022-03-29 14:21] VITALS: BP 117/54; PULSE 69; RESP 16; TEMP 97.7
== END 2022-03-29 14:22 | disposition home or self-care (01) ==
LOC: FINFUSION 13:18 → FM/S 13:19 → FINFUSION 14:22
PROVIDERS: ATTEND Nurse Practitioner Family
DX: M86.9 Osteomyelitis, unspecified (principal); L08.9 Local infection of the skin and subcutaneous tissue, unspecified
CPT/HCPCS: 96365

== ENCOUNTER 2022-03-30 13:09 | Day surgery (SDC) | payer OTHER ==
[2022-03-30] MEDS ORDERED: cefTRIAXone 2 GM/100 ML BAG (PRE-DOCKED) IVPB SCH (13:30)
[2022-03-30 14:07] VITALS: BP 107/68; PULSE 63; RESP 16; TEMP 98.7
== END 2022-03-30 14:09 | disposition home or self-care (01) ==
LOC: FINFUSION 13:09 → FM/S 13:11 → FINFUSION 14:09
PROVIDERS: ATTEND Nurse Practitioner Family
DX: M86.9 Osteomyelitis, unspecified (principal); L08.9 Local infection of the skin and subcutaneous tissue, unspecified
CPT/HCPCS: 96365

== ENCOUNTER 2022-03-31 13:38 | Day surgery (SDC) | payer OTHER ==
[2022-03-31] MEDS ORDERED: CEFTRIAXONE 2 GM in DEXTROSE 5%-WATER 100 ML IVPB ONE (14:15)
[2022-03-31 15:19] VITALS: BP 107/71; PULSE 65; RESP 17; TEMP 98.2
== END 2022-03-31 15:20 | disposition home or self-care (01) ==
LOC: FINFUSION 13:38 → FM/S 13:39 → FINFUSION 15:20
PROVIDERS: ATTEND Nurse Practitioner Family
DX: M86.9 Osteomyelitis, unspecified (principal); L08.9 Local infection of the skin and subcutaneous tissue, unspecified
CPT/HCPCS: 96365

== ENCOUNTER 2022-04-01 13:08 | Day surgery (SDC) | payer OTHER ==
[2022-04-01 13:36] VITALS: TEMP 98.5
[2022-04-01 14:13] VITALS: BP 114/68; PULSE 86; RESP 17
== END 2022-04-01 14:14 | disposition home or self-care (01) ==
LOC: FINFUSION 13:08 → FM/S 13:09 → FINFUSION 14:14
PROVIDERS: ATTEND Nurse Practitioner Family
DX: M86.9 Osteomyelitis, unspecified (principal); L08.9 Local infection of the skin and subcutaneous tissue, unspecified
CPT/HCPCS: 96365

== ENCOUNTER 2022-04-02 14:19 | Day surgery (SDC) | payer OTHER ==
[2022-04-02 14:55] VITALS: BP 121/74; PULSE 70; RESP 16; TEMP 98.2
== END 2022-04-02 14:56 | disposition home or self-care (01) ==
LOC: FINFUSION 14:19 → FM/S 14:20 → FINFUSION 14:56
PROVIDERS: ATTEND Nurse Practitioner Family
DX: M86.9 Osteomyelitis, unspecified (principal); L08.9 Local infection of the skin and subcutaneous tissue, unspecified
CPT/HCPCS: 96365

== ENCOUNTER 2022-04-03 13:35 | Day surgery (SDC) | payer OTHER ==
[2022-04-03 14:31] VITALS: RESP 18; TEMP 98.1
[2022-04-03 14:43] LABS: HEMATOCRIT 44.5 % (35.4-49); HEMOGLOBIN 15.4 G/dL (11.7-16.9); MCH 28.7 pg (25.7-33.7); MCHC 34.7 g/dl (32.0-35.9); MEAN CELL VOLUME 82.9 fl (80-96); MEAN PLT VOLUME 8.1 fl (7.5-11.1); PLATELET COUNT 200.3 10^3/uL (134-434); RBC 5.37 10^6/uL (4.00-5.60); RDW 14.8 % (11.9-15.9); WHITE BLOOD COUNT 3.9 10^3/uL (4.0-10.8)
[2022-04-03 14:51] LABS: ALBUMIN 4.3 g/dl (3.4-5.0); ALK PHOS 61 U/L (45-117); ANION GAP 10 MMOL/L (8-16); BILIRUBIN,TOTAL 0.7 mg/dl (0.2-1); CALCIUM 9.3 mg/dl (8.5-10); CHLORIDE 101 mmol/L (98-107); CO2 24 mmol/L (21-32); CREATININE 0.8 mg/dl (0.55-1.3); GLUCOSE,RANDOM 148 mg/dl (74-106); SGOT/AST 29 U/L (15-37); SGPT/ALT 48 U/L (13-61); SODIUM 135 mmol/L (136-145)
[2022-04-03 15:05] VITALS: BP 102/66; PULSE 67
[2022-04-03 15:20] LABS: ERYTHROCYTE SEDIMENTATION RATE 1 mm/hr (0-10)
== END 2022-04-03 14:53 | disposition home or self-care (01) ==
LOC: FINFUSION 13:35 → FM/S 13:36 → FINFUSION 13:36 → FM/S 13:47 → FINFUSION 14:53
PROVIDERS: ATTEND Nurse Practitioner Family
DX: M86.9 Osteomyelitis, unspecified (principal); L08.9 Local infection of the skin and subcutaneous tissue, unspecified
CPT/HCPCS: 36415; 80053; 85027; 85651; 86140; 96365

== ENCOUNTER 2022-04-04 13:40 | Day surgery (SDC) | payer OTHER ==
[2022-04-04 14:38] VITALS: BP 118/76; PULSE 63; RESP 17; TEMP 98.4
== END 2022-04-04 14:35 | disposition home or self-care (01) ==
LOC: FINFUSION 13:40 → FM/S 13:40 → FINFUSION 14:35
PROVIDERS: ATTEND Nurse Practitioner Family
DX: M86.9 Osteomyelitis, unspecified (principal); L08.9 Local infection of the skin and subcutaneous tissue, unspecified
CPT/HCPCS: 96365

== ENCOUNTER 2022-04-05 13:21 | Day surgery (SDC) | payer OTHER ==
[2022-04-05 14:13] VITALS: BP 114/76; PULSE 67; RESP 17; TEMP 98.4
== END 2022-04-05 14:13 | disposition home or self-care (01) ==
LOC: FINFUSION 13:21 → FM/S 13:22 → FINFUSION 14:13
PROVIDERS: ATTEND Nurse Practitioner Family
DX: M86.9 Osteomyelitis, unspecified (principal); L08.9 Local infection of the skin and subcutaneous tissue, unspecified
CPT/HCPCS: 96365

== ENCOUNTER 2022-04-06 13:08 | Day surgery (SDC) | payer OTHER ==
[2022-04-06] MEDS ORDERED: cefTRIAXone 2 GM/100 ML BAG (PRE-DOCKED) IVPB SCH (13:15)
[2022-04-06 14:14] VITALS: BP 113/72; PULSE 72; RESP 14; TEMP 98.4
== END 2022-04-06 14:15 | disposition home or self-care (01) ==
LOC: FINFUSION 13:08 → FM/S 13:08 → FINFUSION 14:15
PROVIDERS: ATTEND Nurse Practitioner Family
DX: M86.9 Osteomyelitis, unspecified (principal); L08.9 Local infection of the skin and subcutaneous tissue, unspecified
CPT/HCPCS: 96365

== ENCOUNTER 2022-04-07 13:22 | Day surgery (SDC) | payer OTHER ==
[2022-04-07] MEDS ORDERED: CEFTRIAXONE 2 GM in DEXTROSE 5%-WATER 100 ML IVPB ONE (14:00)
[2022-04-07 14:25] VITALS: BP 114/72; RESP 18; TEMP 98.1
[2022-04-07 14:29] VITALS: PULSE 68
== END 2022-04-07 14:34 | disposition home or self-care (01) ==
LOC: FINFUSION 13:22 → FM/S 13:23 → FINFUSION 14:34
PROVIDERS: ATTEND Nurse Practitioner Family
DX: M86.9 Osteomyelitis, unspecified (principal); L08.9 Local infection of the skin and subcutaneous tissue, unspecified
CPT/HCPCS: 96365

== ENCOUNTER 2022-04-08 13:18 | Day surgery (SDC) | payer OTHER ==
[2022-04-08 13:41] VITALS: RESP 18; TEMP 98.1
[2022-04-08 14:11] VITALS: BP 117/67; PULSE 72
== END 2022-04-08 14:12 | disposition home or self-care (01) ==
LOC: FINFUSION 13:18 → FM/S 13:23 → FINFUSION 14:12
PROVIDERS: ATTEND Nurse Practitioner Family
DX: M86.9 Osteomyelitis, unspecified (principal); L08.9 Local infection of the skin and subcutaneous tissue, unspecified
CPT/HCPCS: 96365

== ENCOUNTER 2022-04-09 12:37 | Day surgery (SDC) | payer OTHER ==
[2022-04-09 12:58] LABS: HEMATOCRIT 46.1 % (35.4-49); HEMOGLOBIN 16.4 G/dL (11.7-16.9); MCH 29.3 pg (25.7-33.7); MCHC 35.5 g/dl (32.0-35.9); MEAN CELL VOLUME 82.5 fl (80-96); MEAN PLT VOLUME 7.6 fl (7.5-11.1); PLATELET COUNT 204.4 10^3/uL (134-434); RBC 5.59 10^6/uL (4.00-5.60); WHITE BLOOD COUNT 5.7 10^3/uL (4.0-10.8)
[2022-04-09 13:06] LABS: ALBUMIN 4.4 g/dl (3.4-5.0); ALK PHOS 65 U/L (45-117); ANION GAP 2 MMOL/L (8-16); BILIRUBIN,TOTAL 0.4 mg/dl (0.2-1); CALCIUM 9.1 mg/dl (8.5-10); CHLORIDE 105 mmol/L (98-107); CO2 25 mmol/L (21-32); CREATININE 0.7 mg/dl (0.55-1.3); GLUCOSE,RANDOM 81 mg/dl (74-106); SGOT/AST 29 U/L (15-37); SGPT/ALT 54 U/L (13-61); SODIUM 132 mmol/L (136-145); TOT PROT 7.1 g/dl (6.4-8.2)
[2022-04-09 13:13] VITALS: BP 110/72; PULSE 54; RESP 16; TEMP 98.2
[2022-04-09 13:32] LABS: ERYTHROCYTE SEDIMENTATION RATE 1 mm/hr (0-10)
== END 2022-04-09 13:23 | disposition home or self-care (01) ==
LOC: FINFUSION 12:37 → FM/S 12:39 → FINFUSION 13:23
PROVIDERS: ATTEND Nurse Practitioner Family
DX: M86.9 Osteomyelitis, unspecified (principal); L08.9 Local infection of the skin and subcutaneous tissue, unspecified
CPT/HCPCS: 36415; 80053; 85027; 85651; 86140; 96365